=== PATIENT | female | born 1985 | race Caucasian/White ===

== ENCOUNTER 2018-07-31 23:12 | Emergency (ER) | payer MEDICAID, SELFPAY ==
[2018-07-31 23:21] VITALS: BP 137/63; PULSE 104; RESP 28; TEMP 36.7; O2SAT 100
--- NOTE | 2018-08-01 01:11 | ED.GENADUL_ITS ---
Discharge Plan Disposition Patient Disposition: HOME Condition: Stable Discharge Details Chief Complaint: FacialProb Clinical Impression: Left facial pain, Odontalgia, Dysuria ED Provider: Magalys Clark Home Meds and New Rx's Prescriptions: New clindamycin HCl 150 mg capsule 450 mg PO TID 7 Days Qty: 63 RF: 0 Continued methadone 10 mg/mL Solution 120 mg DAILY RF: 0 Discharge Instructions Instructions: Dysuria (ED), Toothache (ED) Additional Instructions: Alternate tylenol and motrin as needed and directed for pain. Take antibiotics until finished. Follow up with your primary doctor and dentist in 1 week for re-evaluation. Return immediately to the emergency department with any worsening or new concerning symptoms. Discharge Data Discharge Physician: Magalys Clark Medical Decision Making 32-year-old female who presents with 2 complaints. Patient is complaining of dental pain past week, with radiation to left ear and jaw today, worse after blowing nose. Also complaining of dysuria and urinary urgency for the past week. Vitals now within normal limits. Was tachycardic on arrival due to pain, but pain now subsided after taking ibuprofen at home. Patient takes methadone for her chronic pain related to her multiple myeloma. No dental abscess, submandibular swelling, trismus, drooling, lymphadenopathy. Tenderness to palpation of left upper frontal tooth and poor dentition throughout. Abdomen soft nontender. No CVA tenderness. Differential diagnosis includes dental infection, sinus infection, otitis. Will give antibiotics for the facial complaint. Will send for urinalysis. UA negative. D/w pt the possibility of interstitial cystitis. Will give a dose of clindamycin and prescription for home for possible dental for sinus infection. Will place patient on care management list to arrange for a follow- up appoint with her primary care doctor. Patient instructed to follow-up with her dentist for reevaluation and with [facility] for evaluation of her multiple myeloma. Medical Records Medical records reviewed: Yes I reviewed the patient's medical records. Lab Data Lab results reviewed: Yes I reviewed the patient's lab results. Laboratory Tests Range/Units 08/01/18 01:15 Urine Color (Yellow) Yellow Urine Clarity Clear Urine pH (5-8) 5.5 Ur Specific [place] (1.005-1.025) >= 1.030 H Urine Protein (Negative) mg/dL Trace H Urine Ketones (Negative) mg/dL Negative Urine Blood (Negative) Negative Urine Nitrite (Negative) Negative Urine Bilirubin (Negative) Negative Urine Urobilinogen (Up TO 0.2) EU/dL 0.2 Ur Leukocyte Esterase (Negative) Negative Urine RBC (0-2) 0-2 Urine WBC (0-5) HPF 0-2 Ur Epithelial Cells (Negative) HPF Moderate Urine Crystals (Negative) HPF Many calcium oxalate Urine Bacteria (Negative) HPF Few Urine Casts (Negative) LPF Negative Urine Mucus (Negative) Negative Ur Culture Indicated? No Urine Glucose (Negative) mg/dL Negative HPI General Mode of arrival: ambulatory . Date/Time Provider Initiated Documentation: 07/31/18 23:14 . Limitations to Documentation: no limitations . Information obtained by: patient . HPI Narrative: Patient is a 32-year-old female who presents to the ED with a complaint of left facial pain for the past week. Patient states the pain is radiating from her left upper tooth up into her ear and down to her jaw. Patient states she is concerned about a dental abscess. Patient does also admit to recent broken tooth. Patient states the pain became severe tonight when she blew her nose. Patient states she took several doses of Aleve and ibuprofen which did not help initially but now she admits to some relief. She also admits to dysuria and urinary urgency for the past week. She denies hematuria, fever, abdominal pain or back pain. She states she vomited once here in the ED but she thinks that was due to taking Aleve prior to arrival. She denies any nausea at present. Related Data Home Medications Medication Instructions Recorded Confirmed methadone 120 mg DAILY 07/31/18 07/31/18 clindamycin HCl 450 mg PO TID 7 Days #63 cap 08/01/18 Previous Rx's Medication Instructions Recorded clindamycin HCl 450 mg PO TID 7 Days #63 cap 08/01/18 Allergies Allergy/AdvReac Type Severity Reaction Status Date / Time Penicillins AdvReac Severe Anaphylaxsi Unverified 07/31/18 23:29 s General Stated Complaint: FacialProb OSCAR: 3 Review of Systems Review of Systems All systems reviewed & are unremarkable except as noted in HPI and below Constitutional Reports as per HPI, Denies chills and Denies fever(s) Eyes Denies blurry vision ENT Reports dental pain, Denies dizziness, Reports otalgia, Reports facial pain, Denies sore throat and Denies throat swelling Cardiovascular Denies chest pain and Denies dyspnea Respiratory Denies dyspnea Gastrointestinal Denies abdominal pain, Denies diarrhea and Denies vomiting Genitourinary Denies hematuria, Denies urinary frequency, Denies dysuria, Reports urinary hesitancy and Reports urinary urgency Musculoskeletal Denies back pain and Denies numbness Integumentary/Breasts Denies lesions and Denies rash Neurologic Denies dizziness and Denies numbness Allergic/Immunologic Denies throat swelling [facility] Medical History ADHD (Acute) Multiple myeloma (Acute) Social History Smoking/Tobacco Use Status: Current every day alcohol intake: never substance use type: does not use Exam Const General: cooperative, healthy appearing and no acute distress HENMT Head: normal to inspection Ears: hearing grossly normal bilaterally General nose exam: external nose normal Face and sinus: normal facial exam and sinuses nontender Mouth: oral mucosae normal Teeth and gingiva: poor dentition and other (Missing teeth. TTP #10 with superficial ulcer in gum just above.No abscess ) Throat: posterior oropharynx normal, uvula midline and no peritonsillar masses Eyes General: appearance normal, both eyes and all related structures Pupils: PERRL EOM: EOM intact bilaterally Neck Neck: normal visual inspection and No submandibular swelling Lymphatic: no lymphadenopathy noted Chest Chest: normal inspection of the chest and no tenderness Resp Effort & Inspection: normal respiratory effort and able to speak in complete sentences Auscultation: clear to auscultation bilaterally Cardio Rate: regular rate Rhythm: regular rhythm GI Inspection: normal to inspection Palpation: soft, not firm, not rigid and nontender Auscultation: normal bowel sounds Back/Spine/Pelvis Back: no CVA tenderness Skin General skin exam: no rashes or lesions noted Neuro General: alert, awake and oriented x3 Cognition: normal cognition Speech: speech normal Motor: muscle tone normal throughout Sensory Exam: no sensory deficits noted Extrem General: normal to inspection, full ROM, normal capillary refill, no calf tenderness bilaterally and no edema Psych Appearance: grossly normal Mental Status: mental status grossly normal Speech and Movement: speech and movement normal Affect: normal affect Course Vital Signs Temperature 98.1 F 07/31/18 23:21 Pulse 104 H 07/31/18 23:21 Respiratory Rate 28 H 07/31/18 23:21 Blood Pressure 137/63 07/31/18 23:21 Pulse Oximetry 100 07/31/18 23:21 Temperature 98.1 F 07/31/18 23:21 Temperature Source Temporal Artery Scan 07/31/18 23:21 Pulse 104 H 07/31/18 23:21 Respiratory Rate 28 H 07/31/18 23:21 Respiratory Effort 07/31/18 23:21 Blood Pressure 137/63 07/31/18 23:21 Pulse Oximetry 100 07/31/18 23:21 Oxygen Delivery Method Room Air 07/31/18 23:21 Oxygen Flow Rate 0 07/31/18 23:21 Pain Level 10 07/31/18 23:28
[2018-08-01 01:34] LABS: Bilirubin Negative (Negative); Blood Negative (Negative); Clarity Clear; Glucose Negative (Negative); Ketones Negative (Negative); Leukocyte Esterase Negative (Negative); Nitrite Negative (Negative); Specific Gravity >= 1.030 (1.005-1.025); Urobilinogen 0.2 EU/dL (Up TO 0.2); pH 5.5 (5-8)
[2018-08-01 01:43] LABS: Bacteria Few HPF (Negative); C & S Indicated? No; Casts Negative LPF (Negative); Crystals Many Calcium Oxalate HPF (Negative); Epithelial Cells Moderate HPF (Negative); Mucus Negative (Negative); RBC 0-2 (0-2); WBC 0-2 HPF (0-5)
[2018-08-01] MEDS: Clindamycin 150 MG CAP 450 MG PO (01:50)
[2018-08-01 02:09] VITALS: BP 128/80; PULSE 97; RESP 18; O2SAT 100
--- NOTE | 2018-08-01 09:35 | PDOC.ERCMPRO ---
Care Management Progress Note 07/31-Dr. Clark requested assistance with a PCP(Patient does not have one, [place] extension [place]) f/u in one week for left facial pain. Referral faxed to [facility] this am.
--- NOTE | 2018-08-01 09:36 | CMPROGNOTE_ITS ---
Care Management Progress Note 07/31-Dr. Clark requested assistance with a PCP(Patient does not have one, [place] [employer]) f/u in one week for left facial pain. Referral faxed to [facility] this am.
== END 2018-08-01 02:00 | disposition home or self-care (01) ==
LOC: ER 08-01 02:18
PROVIDERS: Emergency Provider Physician Assistant
DX: R51 Headache (principal); K08.89 Other specified disorders of teeth and supporting structures; R30.0 Dysuria; F17.210 Nicotine dependence, cigarettes, uncomplicated
CPT/HCPCS: 99283; 81003; 81015

== ENCOUNTER 2018-12-21 12:24 | Emergency (ER) | payer MEDICAID, SELFPAY ==
[2018-12-21 12:33] VITALS: BP 156/101; PULSE 121; RESP 20; TEMP 37; O2SAT 97
[2018-12-21 13:14] LABS: Bilirubin Negative (Negative); Blood Negative (Negative); Clarity Clear; Glucose Negative (Negative); Ketones Negative (Negative); Leukocyte Esterase Negative (Negative); Nitrite Negative (Negative); Specific Gravity >= 1.030 (1.005-1.025); Urobilinogen 0.2 EU/dL (Up TO 0.2); pH 5.5 (5-8)
--- NOTE | 2018-12-21 13:27 | ED.GENADUL_ITS ---
Discharge Plan Disposition Patient Disposition: HOME Condition: Stable Discharge Details Chief Complaint: Nk/Back Pain Clinical Impression: Low back pain with right-sided sciatica Primary Care Provider: Jane,Local ED Provider: Jordan Abbasi Home Meds and New Rx's Prescriptions: New cyclobenzaprine 10 mg tablet 10 mg PO TID PRN (Reason: muscle spasm) Qty: 10 RF: 0 lidocaine HCl 3 % cream 1 applic TP BID PRN (Reason: pain) Qty: 28.3 RF: 0 Continued methadone 10 mg/mL Solution 135 mg DAILY RF: 0 methylphenidate HCl [Ritalin] 5 mg Tablet 5 mg PO DAILY RF: 0 dextroamphetamine-amphetamine [Adderall] 20 mg Tablet 20 mg PO BID RF: 0 Discharge Instructions Instructions: Sciatica (ED), Low Back Strain (ED), Lumbar Radiculopathy (ED), Lower Back Exercises (ED) Additional Instructions: Return to the emergency department if you develop a fever with your back pain, change in bowel or bladder function, saddle anesthesia, or any further concerns. Otherwise you should establish a primary care provider and follow-up with them in the next 1 to 2 weeks. Referrals: Primary Care Provider [Outside] - 2 weeks (if not improving) Discharge Data Discharge Date/Time-TO BE ENTERED AT DEPARTURE: 12/21/18 13:41 Medical Decision Making Patient presenting the emergency department for chief complaint of right-sided flank pain that started 9 days ago and then over the past 5 days started noting seeing some radiating discomfort down the posterior aspect of her leg into her foot. She states over the last couple days it is been worsening and she went online and looked things up on the Internet and now has significant anxiety about her symptoms. She does state right-sided sciatica in the past with some discomfort to her leg but never this severe. Physical exam shows stable but very anxious patient who is ambulatory with some slight gait abnormality and limping to the right. Patient has positive straight leg raise on the right and tenderness to the right lower lumbar region there is both soft tissue and somewhat spinal without any step-off or deformity noted. Otherwise deep tendon reflexes of bilateral extremity's are equal with no abnormality, sensation is intact, and movement is also intact except for eliciting pain and discomfort. Given the patient states that symptoms seemed more flank in nature urinalysis was performed. Patient is not and shows mild concentration of urine but otherwise no signs of infection or other worrisome findings are noted. Patient given IM ketorolac, lidocaine patch in the emergency department for concern of low back pain with sciatica/radiculopathy. No signs of cauda equina, central cord syndrome, epidural abscess. Return precautions were discussed. Patient states that she wants to follow-up with [facility] and states that she will arrange establishment of primary care. Patient was informed that she should go there sooner than possible to fill out any needed paperwork. After discussion of diagnosis and plan of care patient has no further needs, questions, or concerns and states clear understanding to return to the emergency department for any worsening symptoms. HPI General Mode of arrival: ambulatory . Date/Time Provider Initiated Documentation: 12/21/18 12:27 . Limitations to Documentation: no limitations . Information obtained by: patient and RN notes reviewed . History of Present Illness 32 year old F presents to the emergency department with the chief complaint of back pain, described as severe, with intensity rated at 6. Quality is described as sharp, and is localized to the right and lower extremity. Patient started experiencing this day(s) (9) No relieving factors improve symptom(s), Movement worsens symptoms . Patient notes no other symptoms.. Patient did receive the following treatments prior to arrival, none Related Data Home Medications Medication Instructions Recorded Confirmed methadone 135 mg DAILY 07/31/18 12/21/18 cyclobenzaprine 10 mg PO TID PRN #10 tab 12/21/18 dextroamphetamine-amphetamine 20 mg PO BID 12/21/18 12/21/18 [Adderall] lidocaine HCl 1 applic TP BID PRN #28.3 gm 12/21/18 methylphenidate HCl [Ritalin] 5 mg PO DAILY 12/21/18 12/21/18 Previous Rx's Medication Instructions Recorded cyclobenzaprine 10 mg PO TID PRN #10 tab 12/21/18 lidocaine HCl 1 applic TP BID PRN #28.3 gm 12/21/18 Allergies Allergy/AdvReac Type Severity Reaction Status Date / Time Penicillins AdvReac Severe Anaphylaxsi Unverified 07/31/18 23:29 s General Stated Complaint: Nk/Back Pain OSCAR: 4 Review of Systems Constitutional Denies chills and Denies fever(s) Cardiovascular Denies chest pain and Denies dyspnea on exertion Respiratory Denies cough and Denies dyspnea on exertion Gastrointestinal Denies abdominal pain, Denies change in bowel habits, Denies diarrhea, Denies nausea and Denies vomiting Genitourinary Denies urinary incontinence Musculoskeletal Reports as per HPI, Reports back pain, Reports numbness and Reports tingling Neurologic Reports numbness and Reports tingling [facility] Medical History ADHD (Acute) Multiple myeloma (Acute) Social History Smoking/Tobacco Use Status: Current every day Alcohol Intake: never Drug use: Never Substance use type: does not use Do you feel safe in your relationship?: Yes Exam Const General: cooperative and no acute distress Orientation: alert, awake and oriented x3 Neck Neck: normal visual inspection, full ROM and no meningeal signs Resp Effort & Inspection: normal respiratory effort Auscultation: clear to auscultation bilaterally Cardio Rate: regular rate Rhythm: regular rhythm Heart Sounds: S1 normal and S2 normal GI Palpation: no hepatosplenomegaly, no aortic enlargement, no masses, no pulsatile masses and nontender Back/Spine/Pelvis Thoracic/Lumbar Spine: pain with thoraco-lumbar ROM and thoraco-lumbar ROM limited Pelvis: no pain with anterior-posterior compression, no pain with lateral compression, buttock tenderness on the right and sciatic notch tenderness on the right Neuro General: alert, awake and oriented x3 DTR's: Rt Patellar: 2+, Lt Patellar: 2+, Rt Ankle: 2+ and Lt Ankle: 2+ Extrem Right lower extremity: hip/thigh Details: normal to inspection, knee Details: normal to inspection and lower leg Details: normal to inspection Course Vital Signs Temperature 37.0 C 12/21/18 12:33 Pulse 121 H 12/21/18 12:33 Respiratory Rate 20 12/21/18 12:33 Blood Pressure 156/101 H 12/21/18 12:33 Pulse Oximetry 97 12/21/18 12:33 Temperature 37.0 C 12/21/18 12:33 Temperature Source Tympanic 12/21/18 12:33 Pulse 121 H 12/21/18 12:33 Respiratory Rate 20 12/21/18 12:33 Respiratory Effort Non-Labored 12/21/18 12:38 Blood Pressure 156/101 H 12/21/18 12:33 Blood Pressure Position Sitting 12/21/18 12:33 Pulse Oximetry 97 12/21/18 12:33 Oxygen Delivery Method Room Air 12/21/18 12:33 Oxygen Flow Rate 0 12/21/18 12:33 Pain Level 6 12/21/18 12:33 Lab/Test Results Lab/Test Results: Laboratory Tests Range/Units 12/21/18 13:01 Urine Color (Yellow) Yellow Urine Clarity Clear Urine pH (5-8) 5.5 Ur Specific [place] (1.005-1.025) >= 1.030 H Urine Protein (Negative) mg/dL Negative Urine Ketones (Negative) mg/dL Negative Urine Blood (Negative) Negative Urine Nitrite (Negative) Negative Urine Bilirubin (Negative) Negative Urine Urobilinogen (Up TO 0.2) EU/dL 0.2 Ur Leukocyte Esterase (Negative) Negative Urine Glucose (Negative) mg/dL Negative POC- Test(urine) Negative
[2018-12-21] MEDS: Lidocaine 5% Patch 1 PATCH TP (13:30)
[2018-12-21] MEDS: Ketorolac 60 MG/2 ML VIAL IM (13:30)
== END 2018-12-21 13:41 | disposition home or self-care (01) ==
PROVIDERS: Emergency Provider Nurse Practitioner Family
DX: M54.41 Lumbago with sciatica, right side (principal)
CPT/HCPCS: 81025; 96374; 99284; 81003; J1885

== ENCOUNTER 2019-06-19 10:45 | Emergency (ER) | payer MEDICAID, SELFPAY ==
[2019-06-19 10:48] VITALS: BP 173/118; PULSE 108; RESP 18; TEMP 36.3; O2SAT 99
--- NOTE | 2019-06-19 10:55 | W.ED.GENAD ---
Discharge Plan Disposition Patient Disposition: HOME Condition: Good Discharge Details Chief Complaint: RespSymp Clinical Impression: Otitis media, URI (upper respiratory infection) Primary Care Provider: Jane,Local ED Provider: Caryn Guadarrama Home Meds and New Rx's Prescriptions: New doxycycline hyclate 100 mg capsule 100 mg PO BID Qty: 20 RF: 0 benzonatate [Tessalon Perles] 100 mg capsule 100 mg PO TID PRN (Reason: cough) Qty: 14 RF: 0 Continued methadone 10 mg/mL Solution 133 mg DAILY RF: 0 methylphenidate HCl [Ritalin] 5 mg Tablet 5 mg PO DAILY RF: 0 dextroamphetamine-amphetamine [Adderall] 20 mg Tablet 20 mg PO TID RF: 0 cyclobenzaprine 10 mg tablet 10 mg PO TID PRN (Reason: muscle spasm) Qty: 10 RF: 0 lidocaine HCl 3 % cream 1 applic TP BID PRN (Reason: pain) Qty: 28.3 RF: 0 ibuprofen 200 mg Tablet 600 - 800 mg PO PRN PRNRF: 0 Discharge Instructions Instructions: Otitis Media (ED), Upper Respiratory Infection (ED) Additional Instructions: You have an ear infection in the right ear. Please take the antibiotics as prescribed. Encourage water intake. You may use Tylenol and/or ibuprofen as needed for discomfort. Your lungs are clear on exam but the antibiotic will cover you if you are developing pneumonia as well. Tessalon perles prescribed to help with cough. Our health care sanitary technician will reach out to you regarding establishing primary care provider. If you develop fever/chills, increased pain, discharge from the ear, difficulty breathing or other new/worsening symptoms please seek care urgently once again. Medical Decision Making Patient is a 33-year-old female presenting to complain of URI. She reports she began having a cough 1 week ago. States that initially, it was nonproductive. Over recent days, she is developed right ear pain, increased feeling of malaise and productive cough. Denies any fevers. Denies any GI upset. No rash. Feels short of breath when she is having coughing fits but otherwise no dyspnea. No pleuritic chest pain. Patient status post tubal ligation. On exam, patient appears anxious and shaky. She reports that she missed her morning methadone dosing secondary to [facility] turning me away. We did call the clinic and they are willing to test the patient today after discharge. She appears nontoxic. She has findings of erythema, bulging and loss of landmarks of the right tympanic membrane consistent with acute otitis media. No mastoid tenderness, no lymphadenopathy. Posterior oropharynx is normal. Lungs are clear in all [place]icea. I am concerned that the patient may be developing pneumonia that is not clinically evident at this time. She does have anaphylactic reaction to penicillin, will use doxycycline for otitis media and presumed early pneumonia. She does not have a primary care, I have asked her health care sanitary technician help orchestrate follow-up in 1 week for reevaluation. I encouraged hydration. We will also prescribe Tessalon Perles to help with cough. Patient was initially hypertensive at 173/118 but this came down to 108/77 shortly after arrival. Initial reading is likely due to the patient moving and being very anxious. She reported the shakiness initially was from her missing her dosing as well as her ADHD. Patient was given return precautions. All her questions and concerns are addressed she is in agreement this plan. HPI General Mode of arrival: ambulatory. Date/Time Provider Initiated Documentation: 06/19/19 10:54. Limitations to Documentation: no limitations. Information obtained by: patient and RN notes reviewed. History of Present Illness 33 year old F presents to the emergency department with the chief complaint of URI, described as moderate, with intensity rated at 7. Quality is described as aching (left ear pain), Patient reports no radiation. Patient started experiencing this week(s) (1) and it has been constant. No relieving factors improve symptom(s), No exacerbating factors reported . Patient notes cough and shortness of breath (with cough); denies diaphoresis, fever/chills, headaches, loss of appetite, nausea/vomiting, rash and weakness. Patient did receive the following treatments prior to arrival, NSAID (ibuprofen) Related Data Home Medications Medication Instructions Recorded Confirmed methadone 133 mg DAILY 07/31/18 06/19/19 cyclobenzaprine 10 mg PO TID PRN #10 tab 12/21/18 06/19/19 dextroamphetamine-amphetamine 20 mg PO TID 12/21/18 06/19/19 [Adderall] lidocaine HCl 1 applic TP BID PRN #28.3 gm 12/21/18 06/19/19 methylphenidate HCl [Ritalin] 5 mg PO DAILY 12/21/18 06/19/19 benzonatate [Tessalon Perles] 100 mg PO TID PRN #14 cap 06/19/19 doxycycline hyclate 100 mg PO BID #20 cap 06/19/19 ibuprofen 600 - 800 mg PO PRN PRN 06/19/19 06/19/19 Previous Rx's Medication Instructions Recorded cyclobenzaprine 10 mg PO TID PRN #10 tab 12/21/18 lidocaine HCl 1 applic TP BID PRN #28.3 gm 12/21/18 benzonatate [Tessalon Perles] 100 mg PO TID PRN #14 cap 06/19/19 doxycycline hyclate 100 mg PO BID #20 cap 06/19/19 Allergies Allergy/AdvReac Type Severity Reaction Status Date / Time Penicillins AdvReac Severe Anaphylaxsi Unverified 06/19/19 10:51 s amoxicillin AdvReac Unverified 06/19/19 10:57 General Stated Complaint: RespSymp OSCAR: 3 Review of Systems Constitutional Constitutional: Reports as per HPI, Denies chills, Denies fever(s) and Denies headache(s) Eyes Eyes: Reports as per HPI, Denies eye discharge and Denies irritation ENT Ears, Nose, Mouth, and Throat: Reports as per HPI and Denies headache(s) Cardiovascular Cardiovascular: Reports as per HPI, Denies chest pain and Denies dyspnea Respiratory Respiratory: Reports as per HPI and Denies dyspnea Gastrointestinal Gastrointestinal: Reports as per HPI, Denies abdominal pain, Denies change in bowel habits, Denies nausea and Denies vomiting Integumentary/Breasts Skin/Breast: Reports as per HPI and Denies rash Neurologic Neurologic: Reports as per HPI and Denies headache(s) [facility] Medical History ADHD (Acute) Multiple myeloma (Acute) Social History Smoking/Tobacco Use Status: Current every day Tobacco Type: cigarettes Alcohol Intake: never Drug use: Never Substance use type: does not use Do you feel safe at home: Yes Do you feel safe in your relationship?: Yes Exam Const General: cooperative, healthy appearing, comfortable, no acute distress, well developed and well groomed Nutritional Appearance: average body habitus and well nourished Orientation: alert and awake [facility] Head: normal to inspection, normocephalic and atraumatic Ears: hearing grossly normal bilaterally, external ears normal, TM's abnormal bilaterally (right is bulging, erythematous, loss of landmarks), TM normal on the left, mastoids normal and no periauricular adenopathy General nose exam: external nose normal and nares normal Face and sinus: normal facial exam, sinuses nontender and face symmetric Mouth: oral mucosae normal, lip normal, tongue normal, oropharynx normal and moist mucous membranes Teeth and gingiva: dentition normal Throat: posterior oropharynx normal, tonsils normal and uvula midline Eyes General: appearance normal, both eyes and all related structures Neck Neck: normal visual inspection, full ROM, no lymphadenopathy and no meningeal signs Resp Effort & Inspection: normal respiratory effort, able to speak in complete sentences and no respiratory distress Auscultation: clear to auscultation bilaterally, no rales, no rhonchi and no wheezes Cardio Rate: regular rate Rhythm: regular rhythm Heart Sounds: S1 normal and S2 normal Skin General skin exam: no rashes or lesions noted Neuro General: alert and awake Cognition: normal cognition Speech: speech normal Gait: normal gait Psych Appearance: grossly normal and well kempt Mental Status: mental status grossly normal Speech and Movement: speech and movement normal Course Vital Signs Vital signs: Vital Signs Temperature 36.3 C L 06/19/19 10:48 Pulse 108 H 06/19/19 10:48 Respiratory Rate 18 06/19/19 10:48 Blood Pressure 173/118 H 06/19/19 10:48 Pulse Oximetry 99 06/19/19 10:48 Temperature 36.3 C L 06/19/19 10:48 Temperature Source Temporal Artery Scan 06/19/19 10:48 Pulse 108 H 06/19/19 10:48 Respiratory Rate 18 06/19/19 10:48 Respiratory Effort Non-Labored 06/19/19 10:50 Blood Pressure 173/118 H 06/19/19 10:48 Blood Pressure Position Sitting 06/19/19 10:48 Pulse Oximetry 99 06/19/19 10:48 Oxygen Delivery Method Room Air 06/19/19 10:48 Oxygen Flow Rate 0 06/19/19 10:48 Pain Level 8 06/19/19 10:48
[2019-06-19 11:12] VITALS: BP 108/77; PULSE 96; RESP 22; O2SAT 97
[2019-06-19] MEDS: Acetaminophen 500 MG TAB 1000 MG PO (11:15)
[2019-06-19] MEDS: Doxycycline Hyclate 100 MG CAP PO (11:15)
== END 2019-06-19 11:23 | disposition home or self-care (01) ==
PROVIDERS: Emergency Provider Physician Assistant
DX: J06.9 Acute upper respiratory infection, unspecified (principal); H66.91 Otitis media, unspecified, right ear
CPT/HCPCS: 99283

== ENCOUNTER 2020-03-19 05:00 | Outpatient (CLI) | payer MEDICAID, SELFPAY ==
--- NOTE | 2020-03-19 08:45 | RT.EKG_ITS ---
APPROVED REPORT Exam: Resting ECG Patient Location: O HR:92 bpm ECG Measurements Heart Rate 92 AXIS LA 131 P 65 QRSd 82 QRS 67 QT 384 T 7 QTc 476 Conclusion Sinus rhythm...normal P axis, V-rate 60- 99 Probable left atrial enlargement...P >50mS, <-0.10mV V1 Anteroseptal infarct, old...Q >40mS, V1-V2 Nonspecific ST-T changes
== END 2020-03-19 05:20 ==
PROVIDERS: Visit Provider Family Medicine
DX: Z79.899 Other long term (current) drug therapy (principal); Z13.6 Encounter for screening for cardiovascular disorders; R94.31 Abnormal electrocardiogram [ECG] [EKG]
CPT/HCPCS: 93005; 93010

== ENCOUNTER 2020-03-22 14:33 | Outpatient (REF) | payer MEDICAID, SELFPAY ==
[2020-03-22 15:00] LABS: Abs Immature Grans 0.01 10^3/uL (0.0-0.06); Absolute Basophil Count 0.03 10^3/uL (0.0-0.2); Absolute Lymphocyte Count 2.49 10^3/uL (1.2-3.4); Absolute Monocyte Count 0.34 10^3/uL (0.1-0.8); Absolute Neutrophil Count 2.36 10^3/uL (1.2-6.7); Basophils % 0.6; Eosinophils % 1.9; HCT 39.4 % (36.0-46.0); HGB 13.2 g/dL (11.2-15.7); Immature Grans % 0.2; Lymphocytes % 46.7; MCH 30.3 pg (27.0-33.0); MCHC 33.5 % (32.0-36.0); MCV 90.6 fL (80-95); MPV 10.7 fL (8.0-11.0); Monocytes % 6.4; Neutrophils % 44.2; Nucleated RBC 0 %; Platelet Count 251 10^3/uL (130-400); RBC 4.35 10^6/uL (3.93-5.22); RDW 12.3 % (11.7-14.6); RDW-SD 40.6 fL; WBC 5.33 10^3/uL (4.4-10.8)
[2020-03-22 15:17] LABS: ALT 49 U/L (14-59); AST 46 U/L (15-37); Albumin 3.7 g/dL (3.4-5.0); Alkaline Phosphatase 128 U/L (46-116); Anion Gap 8.9 mmol/L (3-11); BUN 19 mg/dL (7-18); Bilirubin, Total 0.2 mg/dL (0.2-1.0); CO2 27.1 mmol/L (21.0-32.0); CREATININE 1.07 mg/dL (0.55-1.02); Calcium 8.8 mg/dL (8.5-10.1); Chloride 101 mmol/L (98-107); Estimated GFR 58.36 (mL/min/1.73m2); Glucose 101 mg/dL (74-106); Potassium 4.4 mmol/L (3.5-5.1); Sodium 137 mmol/L (136-145); Total Protein 7.3 g/dL (6.4-8.2)
[2020-03-25 11:06] LABS: HIV-1/2 Ag & Ab Screen Negative (Negative)
[2020-03-25 11:29] LABS: Hepatitis C Ab w Rflx HCV PCR Reactive (Negative)
[2020-03-25 11:33] LABS: Hepatitis B Surface Ag Negative (Negative)
[2020-03-25 12:03] LABS: Hep A Total Ab w Rflx IgM Negative (Negative); Hep B Core Antibody Negative (Negative)
[2020-03-25 12:10] LABS: Syphilis Serology (RPR) Negative (Negative)
[2020-03-27 13:35] LABS: HCV RNA Qualitative Undetected (Undetected)
== END 2020-03-22 14:53 ==
LOC: LBN 14:33
PROVIDERS: Visit Provider Nurse Practitioner Family
DX: F11.20 Opioid dependence, uncomplicated (principal); Z11.3 Encounter for screening for infections with a predominantly sexual mode of transmission; Z11.59 Encounter for screening for other viral diseases; Z11.4 Encounter for screening for human immunodeficiency virus [HIV]
CPT/HCPCS: 80053; 86704; 86709; 86803; 87340; 87389; 87522; 85025; 86592

== ENCOUNTER 2020-08-24 16:03 | Emergency (ER) | payer MEDICAID, SELFPAY ==
[2020-08-24 16:11] VITALS: BP 160/96; PULSE 111; RESP 24; TEMP 36.1; O2SAT 99
--- NOTE | 2020-08-24 16:25 | ED.GENADUL_ITS ---
Discharge Plan Disposition Patient Disposition: HOME Condition: Stable Discharge Details Clinical Impression: Odontalgia, Vaginal mass Primary Care Provider: None,None ED Provider: David Tillman Home Meds and New Rx's Prescriptions: New clindamycin HCl 300 mg capsule 300 mg PO Q6H 7 Days Qty: 28 RF: 0 No Action methadone 10 mg/mL Solution 133 mg DAILY RF: 0 methylphenidate HCl [Ritalin] 5 mg Tablet 5 mg PO DAILY RF: 0 dextroamphetamine-amphetamine [Adderall] 20 mg Tablet 20 mg PO TID RF: 0 lidocaine HCl 3 % cream 1 applic TP BID PRN (Reason: pain) Qty: 28.3 RF: 0 ibuprofen 200 mg Tablet 600 - 800 mg PO PRN PRNRF: 0 Discharge Instructions Instructions: Toothache (ED) Additional Instructions: See enclosed paperwork. Please call the radiology scheduling office to make an appointment time for outpatient ultrasound. We will have you follow-up in women's health. Please take clindamycin as prescribed. I recommend you take an [id number] probiotic once daily while on this antibiotic. Return to the ER for any acute concerns. Continue your regular medications. Resume normal routine and activities. Medical Decision Making 34-year-old female presents from home with 2 complaints. First is that she has had numerous dental caries, partially broken teeth and now with some oral pain without significant swelling, concerned she may have a right-sided tooth infection. Secondly she has noticed a protuberant mass in her vaginal introitus. She is not had vaginal discharge or bleeding. No trauma to the area and has otherwise recently been well. Her vital signs show to have a slightly elevated heart rate at triage. Her oral examination is concerning for developing dental infection. Secondly she has a soft tissue mass at the vaginal introitus, may be a cystocele. She wishes to be discharged home today, therefore, I will order an outpatient vaginal ultrasound for the patient have her follow-up in women's health. She will be placed on clindamycin for her dental infection. HPI General Mode of arrival: ambulatory . Date/Time Provider Initiated Documentation: 08/24/20 16:04 . Limitations to Documentation: no limitations . Information obtained by: patient . History of Present Illness 34 year old F presents to the emergency department with the chief complaint of Tooth infection and vaginal mass, described as moderate, Quality is described as dull, and is localized to the mouth. Patient reports no radiation. Patient started experiencing this day(s) and it has been constant. No relieving factors improve symptom(s), No exacerbating factors reported . Patient notes denies loss of appetite. Patient did receive the following treatments prior to arrival, none Related Data Home Medications Medication Instructions Recorded Confirmed methadone 133 mg DAILY 07/31/18 06/19/19 dextroamphetamine-amphetamine 20 mg PO TID 12/21/18 06/19/19 [Adderall] lidocaine HCl 1 applic TP BID PRN #28.3 gm 12/21/18 06/19/19 methylphenidate HCl [Ritalin] 5 mg PO DAILY 12/21/18 06/19/19 ibuprofen 600 - 800 mg PO PRN PRN 06/19/19 06/19/19 clindamycin HCl 300 mg PO Q6H 7 Days #28 cap 08/24/20 Previous Rx's Medication Instructions Recorded lidocaine HCl 1 applic TP BID PRN #28.3 gm 12/21/18 clindamycin HCl 300 mg PO Q6H 7 Days #28 cap 08/24/20 Allergies Allergy/AdvReac Type Severity Reaction Status Date / Time Penicillins AdvReac Severe Anaphylaxsi Unverified 08/24/20 16:15 s amoxicillin AdvReac Unverified 08/24/20 16:15 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 Pleasant, well groomed, interactive. HEAD: Normocephalic, atraumatic ENT: Mucous membranes moist, oropharynx with numerous missing and partially broken teeth, tender right lower premolar, tympanic membrane clear bilaterally, External ear exam unremarkable EYES: PERRL, EOMI NECK: Full ROM, no FORREST, no menigismus CHEST/RESP: Nontender, clear to auscultation bilateral, no wheeze/rhonchi/rales CARDIOVASCULAR: RRR, no murmur, rub juan manuel. 2+ Rad pulse bilateral ABDOMEN: Soft, nontender, no mass. +Bowel sounds Vaginal: There is a protuberant soft tissue mass at the vaginal introitus. It is mildly tender. No discharge or bleeding. EXT: Full ROM, no edema, no rash Neuro: Grossly normal neurologic exam, conversant, interactive. Psych: Speech fluent, thoughts congruent, affect normal Course Vital Signs Vital signs: Vital Signs Temperature 36.1 C L 08/24/20 16:11 Pulse 111 H 08/24/20 16:11 Respiratory Rate 24 08/24/20 16:11 Blood Pressure 160/96 H 08/24/20 16:11 Pulse Oximetry 99 08/24/20 16:11 Temperature 36.1 C L 08/24/20 16:11 Temperature Source Temporal Artery Scan 08/24/20 16:11 Pulse 111 H 08/24/20 16:11 Respiratory Rate 24 08/24/20 16:11 Blood Pressure 160/96 H 08/24/20 16:11 Blood Pressure Position Supine 08/24/20 16:11 Pulse Oximetry 99 08/24/20 16:11 Oxygen Delivery Method Room Air 08/24/20 16:11 Oxygen Flow Rate 0 08/24/20 16:11 Pain Level 0 08/24/20 16:11
--- NOTE | 2020-08-24 16:35 | NUR.NOTE ---
Nursing Note: Outpatient order for US faxed to DI for WedAug 26 or Aug 27 of next week. Juanita Cope [facility] Juanita Cope Referral given to Care Management to establish care with a PCP. Routine f/u. Juanita Cope
--- NOTE | 2020-08-26 15:17 | CMPROGNOTE_ITS ---
- If Service Date Differs Date of service: 08/26/20 Time of Service: 15:17 Care Management Progress Note America is seen in the ED on 08/24/2020 for odontalgia and a vaginal mass. At the request of ED provider, JENY coordinates a referral to MARGO Smith, SERVICES PROGRAM MANAGER-BC, of [facility], on-call provider, to assist America in obtaining a follow up appointment and in establishing care with a PCP. She has Medicaid for insurance. A referral has also been made by the ED to [facility].
--- NOTE | 2020-09-06 09:14 | NUR.NOTE ---
Nursing Note: Patient scheduled for a pelvic US and was a no show per DI. Juanita Cope
== END 2020-08-24 16:40 | disposition home or self-care (01) ==
PROVIDERS: Emergency Provider Emergency Medicine
DX: R68.84 Jaw pain (principal); K04.7 Periapical abscess without sinus; N89.8 Other specified noninflammatory disorders of vagina
CPT/HCPCS: 99283

== ENCOUNTER 2020-11-29 06:23 | Emergency (ER) | payer MEDICAID, SELFPAY ==
[2020-11-29 06:27] VITALS: BP 159/86; PULSE 88; RESP 18; TEMP 36.6; O2SAT 98
--- NOTE | 2020-11-29 06:36 | ED.GENADUL_ITS ---
Discharge Plan Disposition Patient Disposition: HOME Condition: Good Discharge Details Clinical Impression: Dental infection, Eczema of scalp Primary Care Provider: None,None ED Provider: Lars Wagoner Meds and New Rx's Prescriptions: New clindamycin HCl 300 mg capsule 300 mg PO TID Qty: 21 RF: 0 hydrocortisone 1 % cream 1 applic topical BID-QID PRN (Reason: itching/rash) Qty: 28.35 RF: 0 Continued methadone 10 mg/mL Solution 133 mg DAILY RF: 0 methylphenidate HCl [Ritalin] 5 mg Tablet 5 mg PO DAILY RF: 0 dextroamphetamine-amphetamine [Adderall] 20 mg Tablet 20 mg PO TID RF: 0 ibuprofen 200 mg Tablet 600 - 800 mg PO PRN PRNRF: 0 Discharge Instructions Additional Instructions: Alternate acetaminophen with ibuprofen to help with your dental pain. Antibiotic as prescribed. Contact dentist to see if can get earlier appointment. Hydrocortisone cream to scalp area to help with itching and rash. Follow-up with primary care if no improvement over the course of 1 to 2 weeks. Return to ED if difficulty breathing, inability to swallow, increasing facial swelling or redness, fever, other concern Medical Decision Making Patient with severe dental decay and multiple fractured teeth. Increasing dental pain now associated with facial pain and likely recurrent dental infection. Has allergies to penicillins and requires clindamycin for dental infection. She reports being on a cancellation list with the dentist but otherwise has appointment in a month. Posterior scalp and neck region looks like eczema but there is significant excoriated areas from her constant itching. A couple spots in the scalp itself do look like insect bites typically seen during the spring and season. Will treat rash with hydrocortisone cream to see if improvement with the pruritus. Patient needs primary care for follow up. HPI General Mode of arrival: ambulatory . Date/Time Provider Initiated Documentation: 11/29/20 06:36 . Limitations to Documentation: no limitations . Information obtained by: patient and RN notes reviewed . HPI Narrative: Patient presents to ED with complaint of rash and itching to the back of her scalp area as well as worsening dental pain over the last couple of days. Patient reports that she has rash with pruritus to the posterior scalp region about the area of the neck. She has been scratching and scratching. She has not had this problem before. She denies of bite because she does not go outside that much. She denies rash or pruritus anywhere else. She also reports that patient had tooth broke off a few days ago. She does have a dental appointment but not for a month. She has had previous dental problems and infections. Pain has been getting much worse. No fever. She does have facial and ear pain coming from the dental area. She denies any facial swelling or redness. No difficulty breathing. Able to swallow Related Data Home Medications Medication Instructions Recorded Confirmed methadone 133 mg DAILY 07/31/18 11/29/20 dextroamphetamine-amphetamine 20 mg PO TID 12/21/18 11/29/20 [Adderall] methylphenidate HCl [Ritalin] 5 mg PO DAILY 12/21/18 11/29/20 ibuprofen 600 - 800 mg PO PRN PRN 06/19/19 11/29/20 clindamycin HCl 300 mg PO TID #21 cap 11/29/20 hydrocortisone 1 applic TOPICAL BID-QID PRN 11/29/20 #28.35 g Previous Rx's Medication Instructions Recorded clindamycin HCl 300 mg PO TID #21 cap 11/29/20 hydrocortisone 1 applic TOPICAL BID-QID PRN 11/29/20 #28.35 g Allergies Allergy/AdvReac Type Severity Reaction Status Date / Time Penicillins AdvReac Severe Anaphylaxsi Unverified 11/29/20 06:30 s amoxicillin AdvReac Unverified 11/29/20 06:30 General Stated Complaint: DentalOral OSCAR: 4 Review of Systems Narrative: As documented in HPI otherwise negative as below. Const: no fever, chills, weakness Resp: no cough, SOB, pleuritic pain CV: no CP, diaphoresis, edema, syncope GI: no abdominal pain, nausea, vomiting, diarrhea Neuro: no numbness, focal weakness, confusion [facility] Medical History (Updated 11/29/20 @ 06:56 by Lars Wagoner MD) ADHD Multiple myeloma Social History Smoking/Tobacco Use Status: Current every day Tobacco Type: cigarettes Smoking risk assessment performed?: Yes Alcohol Intake: never Drug use: Never Substance use type: does not use Do you feel safe at home: Yes Do you feel safe in your relationship?: Yes Exam Narrative Exam Narrative: Const: WDWN female in NAD. HEENT: NC/AT. Normal facial exam. Very poor dentition with multiple fractured teeth. Percussion tenderness involving left lower canine. No obvious gingival abscess Eyes: Normal conjunctiva and sclera. Neck: Supple. Trachea midline. Lungs: Normal respiratory effort. Neuro: A+O x 3. Normal speech, mentation, gait. Cranial nerves II - XII grossly intact. No gross motor or sensory deficit. Skin: Warm and dry. Eczematous type rash posterior scalp along the neckline. Multiple areas of excoriation. No sign of overlying cellulitis Course Vital Signs Vital signs: Vital Signs Temperature 97.9 F 11/29/20 06:27 Pulse 88 11/29/20 06:27 Respiratory Rate 18 11/29/20 06:27 Blood Pressure 159/86 H 11/29/20 06:27 Pulse Oximetry 98 11/29/20 06:27 Temperature 97.9 F 11/29/20 06:27 Temperature Source Temporal Artery Scan 11/29/20 06:27 Pulse 88 11/29/20 06:27 Respiratory Rate 18 11/29/20 06:27 Blood Pressure 159/86 H 11/29/20 06:27 Blood Pressure Position Sitting 11/29/20 06:27 Pulse Oximetry 98 11/29/20 06:27
== END 2020-11-29 07:08 | disposition home or self-care (01) ==
LOC: ER 07:41
PROVIDERS: Emergency Provider Emergency Medicine
DX: K04.7 Periapical abscess without sinus (principal); L30.9 Dermatitis, unspecified
CPT/HCPCS: 99283

== ENCOUNTER 2021-11-02 20:58 | Emergency (ER) | payer MEDICAID, SELFPAY ==
[2021-11-02 21:08] VITALS: BP 155/95; PULSE 110; RESP 18; TEMP 36.7; O2SAT 100
[2021-11-02 21:39] VITALS: RESP 16
[2021-11-02] MEDS: Clindamycin 300 MG CAP 450 MG PO (21:50)
[2021-11-02 21:53] VITALS: BP 155/95; PULSE 110; RESP 16; TEMP 36.7; O2SAT 100
--- NOTE | 2021-11-02 23:26 | W.ED.GENAD ---
Discharge Plan Disposition Patient Disposition: HOME Condition: Stable Discharge Details Clinical Impression: Pain, dental, Lip swelling Primary Care Provider: None,None ED Provider: Didi Watts Home Meds and New Rx's Prescriptions: New clindamycin HCl 300 mg capsule 450 mg PO Q8H Qty: 90 0RF Continued methadone 10 mg/mL Solution 127 mg DAILY 0RF methylphenidate HCl [Ritalin] 5 mg Tablet 5 mg PO DAILY 0RF dextroamphetamine-amphetamine [Adderall] 20 mg Tablet 20 mg PO TID 0RF ibuprofen 200 mg Tablet 600 - 800 mg PO PRN PRN0RF hydrocortisone 1 % cream 1 applic topical BID-QID PRN (Reason: itching/rash) Qty: 28.35 0RF Discontinued clindamycin HCl 300 mg capsule 300 mg PO TID Qty: 21 0RF Discharge Instructions Additional Instructions: Take antibiotic as prescribed You have declined blood work or imaging, please follow-up with your primary care physician, you have not been fully evaluated Return earlier should you have new or worsening complaints Discharge Data Discharge Date/Time-TO BE ENTERED AT DEPARTURE: 11/02/21 21:53 Medical Decision Making I recommended labs and CT imaging, patient declines She is alert, oriented, of decisional capacity as her partner is in the room for the entirety of my recommendations and assessment Did recommend patient antibiotics to treat her for suspected dental infection vs facial abscess, did discuss that ct would be helpful in differentiating this diagnosis She has no evidence of Ludwigs angina She is aware that she is leaving prior to complete document any cancer medical recommendation care managment for follow-up to [facility] pcp recommendation to return at her earliest availability Medical Records Medical records reviewed: Yes I reviewed the patient's medical records. Lab Data Lab results reviewed: Yes I reviewed the patient's lab results. ECG Data Prior ECG tracings: available for review HPI General Date/Time Provider Initiated Documentation: 11/02/21 21:36. HPI Narrative: 35-year-old female with reported history of multiple myeloma presents with swelling to her right lip and dental pain. She also states she has had a sore throat. She denies any fever or chills. She states she has not had any medical management of her multiple myeloma does not have a primary care physician. She denies any chest pain or shortness of breath. She denies any dizziness or weakness. She denies any nausea or vomiting. She has not been on antibiotics recently. She denies any complaints time. She denies any chance of . She denies any difficulty swallowing. Related Data Home Medications Medication Instructions Recorded Confirmed methadone 10 mg/mL injection 127 mg DAILY 07/31/18 11/02/21 solution dextroamphetamine-amphetamine 20 20 mg PO TID 12/21/18 11/02/21 mg tablet (Adderall) methylphenidate HCl 5 mg tablet 5 mg PO DAILY 12/21/18 11/02/21 (Ritalin) ibuprofen 200 mg tablet 600 - 800 mg PO PRN PRN 06/19/19 11/02/21 hydrocortisone 1 % topical cream 1 applic TOPICAL BID-QID PRN 11/29/20 #28.35 g clindamycin HCl 300 mg capsule 450 mg PO Q8H #90 cap 11/02/21 Previous Rx's Medication Instructions Recorded hydrocortisone 1 % topical cream 1 applic TOPICAL BID-QID PRN 11/29/20 #28.35 g clindamycin HCl 300 mg capsule 450 mg PO Q8H #90 cap 11/02/21 Allergies Allergy/AdvReac Type Severity Reaction Status Date / Time clavulanic acid Allergy Unverified 11/02/21 21:13 [From Augmentin] Penicillins AdvReac Severe Anaphylaxsi Unverified 11/02/21 21:13 s amoxicillin AdvReac Unverified 11/02/21 21:13 General Stated Complaint: GenMedical OSCAR: 3 Review of Systems All systems reviewed & are unremarkable except as noted in HPI and below PFSH All Active Problems (Updated 11/02/21 @ 21:43 by CARLOS Flores) Dental infection (Acute) Eczema of scalp (Acute) Pain, dental (Acute) Lip swelling (Acute) Medical History (Updated 11/02/21 @ 21:43 by CARLOS Flores) ADHD Multiple myeloma Social History Smoking/Tobacco Use Status: Current every day Tobacco Type: cigarettes Smoking risk assessment performed?: Yes Alcohol Intake: never Drug use: Never Substance use type: former substance user Details: 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 Do you feel safe at home: Yes Do you feel safe in your relationship?: Yes Exam Const General: cooperative and no acute distress HENMT Mouth/tongue images: 1. Indurated, macerated Uvula midline, maintaining secretions Other: Widespread dental decay Resp Effort & Inspection: normal respiratory effort Auscultation: clear to auscultation bilaterally Cardio Rate: regular rate Rhythm: regular rhythm GI Inspection: normal to inspection Neuro General: patient alert and patient oriented x3 Course Vital Signs Vital signs: Vital Signs Temperature 36.7 C 11/02/21 21:08 Pulse 110 H 11/02/21 21:08 Respiratory Rate 18 11/02/21 21:08 Blood Pressure 155/95 H 11/02/21 21:08 Pulse Oximetry 100 11/02/21 21:08 Temperature 36.7 C 11/02/21 21:53 Temperature Source Skin 11/02/21 21:08 Pulse 110 H 11/02/21 21:53 Respiratory Rate 16 11/02/21 21:53 Respiratory Effort Non-Labored 11/02/21 21:39 Respiratory Depth Normal 11/02/21 21:39 Respiratory Pattern Normal 11/02/21 21:39 Blood Pressure 155/95 H 11/02/21 21:53 Blood Pressure Position Sitting 11/02/21 21:08 Pulse Oximetry 100 11/02/21 21:53 Oxygen Delivery Method Room Air 11/02/21 21:08 Oxygen Flow Rate 0 11/02/21 21:08 Pain Level 6 11/02/21 21:08
--- NOTE | 2021-11-03 09:19 | CMACTNOTE_ITS ---
- If Service Date Differs Date of service: 11/03/21 Time of Service: 09:20 Care Management Activity Note America is seen in the ED for lip swelling, a sore throat, and dental pain. At the request of ED provider, JENY coordinates a referral to RAVI Casanova, of [facility], on-call provider, to assist America in obtaining a follow up appointment and in establishing care with a PCP.
== END 2021-11-02 21:53 | disposition home or self-care (01) ==
PROVIDERS: Emergency Provider Physician Assistant
DX: K08.89 Other specified disorders of teeth and supporting structures (principal); R22.0 Localized swelling, mass and lump, head
CPT/HCPCS: 99283

== ENCOUNTER 2023-08-29 07:51 | Emergency (ER) | payer MEDICAID, SELFPAY ==
[2023-08-29] VITALS (9 sets, daily range): BP systolic 128–183; BP diastolic 69–107; PULSE 95–121; RESP 20; TEMP 37.1; O2SAT 96–100
--- NOTE | 2023-08-29 08:15 | DI.CT_ITS ---
Exam(s) CT CHEST/ABD/PEL W EXAM: CT CHEST/ABD/PEL W CLINICAL HISTORY: abd pain, rectal bleed, hx mult myeloma clav tumor. TECHNIQUE: Imaging Protocol: Axial computed tomography images with coronal and sagittal reformatted images were created and reviewed CONTRAST MATERIAL: Intravenous: Omnipaque 350 Contrast volume:100 ml Oral: no COMPARISON: No exams were available for comparison FINDINGS: CHEST: Tracheobronchial tree: Patent where visualized. Pulmonary parenchyma: No consolidation or dominant measurable mass. Pleura: No effusion or pneumothorax. Lymph nodes: Within normal limits. Aorta: Thoracic portion non-dilated. Heart: No pericardial effusion. Bones: Unremarkable for age. No lytic or blastic lesions.No compression fractures. No abnormality o f the clavicle visible. Soft tissues: Unremarkable. ABDOMEN and PELVIS: Liver: Normal density. No measurable mass. Gallbladder and biliary tract: Status post cholecystectomy. Mild biliary dilatation. Pancreas: Normal density, no abnormal calcifications or inflammatory process. Spleen: Normal. Kidneys: Normal size, contour and axis. No radiodense stones. No obstructive uropathy. No suspicious masses seen. Adrenal glands: No masses seen. Aorta: Abdominal portion non-dilated. Lymph nodes: Within normal limits. Soft tissues: Unremarkable. Bladder: Unremarkable. Bowel: Moderate of stool. No obstruction or bowel wall thickening. Peritoneal cavity: No ascites. No focal collection. No mesenteric inflammatory response. Bones: Unremarkable for age. Reproductive organs: Within normal limits. IMPRESSION: No acute abnormality in the chest, abdomen or pelvis.. RADIATION DOSE DELIVERED: Total DLP DATA REPOSITORY: All CT scans at this facility are submitted to the National Radiology Data Registry (NRDR) Dose Index Registry (DIR) with the [employer] (ACR). RADIATION OPTIMIZATION: All CT scans at this facility use at least one of these dose optimization te chniques: automated exposure control; mA and/or kV adjustment per patient size (includes targeted exa ms where dose is matched to clinical indication); or iterative reconstruction.
--- NOTE | 2023-08-29 08:20 | ED.GENADUL_ITS ---
HPI General Date/Time Provider Initiated Documentation: 08/29/23 07:58 . HPI Narrative: 37-year-old female history of left chest wall tumor status postresection, multiple myeloma, currently untreated, presents with abdominal pain and intermittent blood in stool over the last several months also endorsing tooth discomfort and ear pressure Related Data Home Medications Medication Instructions Recorded Confirmed methadone 10 mg/mL injection 124 mg subcut DAILY 07/31/18 08/29/23 solution dextroamphetamine-amphetamine 20 20 mg PO TID 12/21/18 08/29/23 mg tablet (Adderall) ibuprofen 200 mg tablet 600 - 800 mg PO PRN PRN 06/19/19 08/29/23 Allergies Allergy/AdvReac Type Severity Reaction Status Date / Time clavulanic acid Allergy Other (See Unverified 08/29/23 08:05 [From Augmentin] Comment) Penicillins AdvReac Severe Anaphylaxsi Unverified 08/29/23 08:05 s amoxicillin AdvReac Other (See Unverified 08/29/23 08:05 Comment) General Stated Complaint: Abd Prob OSCAR: 3 Review of Systems Narrative: Review of Systems Constitutional: negative Eyes: negative ENT: Tooth pain ear pain Cardiovascular: negative Respiratory: negative Gastrointestinal: Abdominal pain : negative Musculoskeletal: negative Skin: negative Neurologic: negative Psych: negative Exam Narrative Exam Narrative: Physical Examination General: alert, awake, cooperative, tearful HEENT: normocephalic, atraumatic; PERRL, EOM intact, conjunctiva normal; no nasal discharge; moist mucous membranes, oral and pharyngeal mucosa normal, tolerating secretions; chronic fractured carious right upper molar; TMs clear bilaterally Neck: supple, trachea midline; full ROM Chest: normal to inspection Respiratory: normal respiratory effort, speaking in full sentences, clear to auscultation, no wheezing, rales or rhonchi Cardiac: Tachycardia, regular rhythm, S1S2 intact, no murmurs rubs or gallops GI: abdomen soft, non-tender, non-distended; no palpable mass or hepatosplenomegaly Skin: no lesions, rashes or trauma appreciated Neuro: AAOx3, normal speech, moving all extremities Extremities: Edema to bilateral ankles Psych: Tearful Course Vital Signs Vital signs: Vital Signs Temperature 37.1 C 08/29/23 08:01 Pulse 121 H 08/29/23 08:01 Respiratory Rate 20 08/29/23 08:01 Blood Pressure 183/107 H 08/29/23 08:01 Pulse Oximetry 100 08/29/23 08:01 Temperature 37.1 C 08/29/23 08:07 Pulse 121 H 08/29/23 08:07 Respiratory Rate 20 08/29/23 08:07 Respiratory Effort Normal, Non-Labored 08/29/23 08:07 Blood Pressure 183/107 H 08/29/23 08:07 Pulse Oximetry 100 08/29/23 08:07 Oxygen Delivery Method Room Air 08/29/23 08:07 Medical Decision Making 37-year-old female history of multiple myeloma, chest wall tumor status postresection, presents with abdominal pain and intermittent blood in stool over the last several weeks, no to be hypertensive tachycardic on arrival however patient is very anxious and tearful regarding her current condition, she is worried that she may be dying, endorses right upper molar pain as well as ear discomfort, evidence of chronically carious and fractured right upper molar without signs of deep space infection of head or neck, TMs clear bilaterally, moist mucous membranes, abdomen soft nontender nondistended, edema to bilateral ankles, afebrile nontoxic nonhypoxic. No history of thromboembolic disease no history of coronary artery disease. Patient describes an undifferentiated mass in her pelvis for some time unclear etiology and it sounds as if she is not undergoing any current treatment. Consider cervical versus uterine mass muscles consider rectal/colonic mass versus recurrence of multiple myeloma versus foodborne illness versus viral illness versus diverticular bleed versus colonic polyp versus hemorrhoid/fissure. No evidence of otitis media, no evidence of periapical abscess or facial cellulitis on examination. Will obtain screening labs, CT chest abdomen pelvis for malignancy screening analgesia anxiolysis light fluid close reassessment of symptoms. 9: 41 patient resting comfortably no acute distress feeling much better. Labs and imaging largely unremarkable. Will establish primary care and IC DESIGN ENGINEER care for the future. Home care instructions and return precautions given Quality:SDOH Health Related Social Needs: No Data to Display PFSH All Active Problems (Updated 08/29/23 @ 09:42 by Dale Mars MD) Abdominal pain (Acute) Eczema of scalp (Acute) Dental infection (Acute) Medical History (Updated 08/29/23 @ 09:42 by Dale Mars MD) ADHD Multiple myeloma Social History Smoking/Tobacco Use Status: Current every day Tobacco Type: cigarettes Smoking risk assessment performed?: Yes Alcohol Intake: never Drug use: Never Substance use type: former substance user Details: 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 Do you feel safe at home: Yes Do you feel safe in your relationship?: Yes Discharge Plan Disposition Patient Disposition: Home Condition: Improving Discharge Details Chief Complaint: Abd Prob Clinical Impression: Abdominal pain Primary Care Provider: None,None ED Provider: Dale Mars Home Meds and New Rx's Prescriptions: No Action methadone 10 mg/mL Solution 124 mg subcut DAILY Rx Instructions: Taken PO dextroamphetamine-amphetamine [Adderall] 20 mg Tablet 20 mg PO TID ibuprofen 200 mg Tablet 600 - 800 mg PO PRN PRN Discharge Instructions Instructions: Abdominal Pain (ED) Additional Instructions: Please follow-up with primary care physician and [facility] DES[facility]INEER.
[2023-08-29] MEDS: LORazepam 2 MG/ML VIAL 1 MG IVP (08:29)
[2023-08-29] MEDS: Ondansetron 4 MG/2 ML VIAL IVP (08:29)
[2023-08-29] MEDS: ACETAMINOPHEN 1,000 MG/100 ML BTL 400 MG IVPB (08:30)
[2023-08-29] MEDS: Normal Saline 500 ML 1000 ML IV (08:31)
[2023-08-29 08:39] LABS: Abs Immature Grans 0.01 10^3/uL (0.0-0.06); Absolute Basophil Count 0.07 10^3/uL (0.0-0.2); Absolute Eosinophil Count 0.16 10^3/uL (0.0-0.7); Absolute Lymphocyte Count 2.34 10^3/uL (1.2-3.4); Absolute Monocyte Count 0.44 10^3/uL (0.1-0.8); Absolute Neutrophil Count 2.98 10^3/uL (1.2-6.7); Basophils % 1.2; Eosinophils % 2.7; HCT 43.5 % (36.0-46.0); Immature Grans % 0.2; MCH 30.5 pg (27.0-33.0); MCHC 34.5 % (32.0-36.0); MCV 88 fL (80-95); MPV 9.7 fL (8.0-11.0); Monocytes % 7.3; Neutrophils % 49.6; Platelet Count 292 10^3/uL (130-400); RBC 4.92 10^6/uL (3.93-5.22); RDW 12.4 % (11.7-14.6); RDW-SD 40.5 fL
[2023-08-29] MEDS: Normal Saline - Diluent 50 ML VIAL IJ (08:44)
[2023-08-29] MEDS: Omnipaque 350 MG/ML 100 ML BTL IJ (08:45)
[2023-08-29 08:53] LABS: PTT Activated 23.9 sec (23.6-32.8); Prothrombin Time 9.6 sec (9.1-11.1)
[2023-08-29 09:03] LABS: ALT 107 U/L (14-59); AST 56 U/L (15-37); Albumin 4.4 g/dL (3.4-5.0); Alkaline Phosphatase 163 U/L (46-116); Anion Gap 11.2 mmol/L (3-11); BUN 19 mg/dL (7-18); Bilirubin, Total 0.4 mg/dL (0.2-1.0); CO2 26.8 mmol/L (21.0-32.0); CREATININE 0.9 mg/dL (0.55-1.02); Calcium 9.6 mg/dL (8.5-10.1); Chloride 100 mmol/L (98-107); Estimated GFR 83.92 (mL/min/1.73m2); Glucose 109 mg/dL (74-106); Magnesium 2.2 mg/dL (1.8-2.4); Potassium 3.7 mmol/L (3.5-5.1); Sodium 138 mmol/L (136-145); TSH (W/Ref FT4) 3.24 uIU/mL (0.36-3.74); Total Protein 8.8 g/dL (6.4-8.2)
--- NOTE | 2023-08-29 09:26 | DI.VRAD_ITS ---
PROCEDURE INFORMATION: Exam: CT Chest With Contrast; Diagnostic Exam date and time: 08/29/2023 8:48 AM Age: 37 years old Clinical indication: Other: Abd pain, rectal bleed, HX mult myeloma clav tumor TECHNIQUE: Imaging protocol: Diagnostic computed tomography of the chest with contrast. 3D rendering (Not supervised by radiologist): MIP and/or 3D reconstructed images were created by the technologist. Radiation optimization: All CT scans at this facility use at least one of these dose optimization techniques: automated exposure control; mA and/or kV adjustment per patient size (includes targeted exams where dose is matched to clinical indication); or iterative reconstruction. Contrast material: OMNI 350; Contrast volume: 100 ml; Contrast route: INTRAVENOUS (IV); COMPARISON: No relevant prior studies available. FINDINGS: Lungs: Unremarkable. No consolidation. No masses. Pleural spaces: Unremarkable. No pneumothorax. No pleural effusion. Heart: Unremarkable. No cardiomegaly. No pericardial effusion. Lymph nodes: Unremarkable. No enlarged lymph nodes. Vasculature: Unremarkable. No aortic aneurysm. Bones/joints: Unremarkable. No acute fracture. Soft tissues: Unremarkable. IMPRESSION: No acute findings. PROCEDURE INFORMATION: Exam: CT Abdomen And Pelvis With Contrast Exam date and time: 08/29/2023 8:48 AM Age: 37 years old Clinical indication: Other: Abd pain, rectal bleed, HX mult myeloma clav tumor TECHNIQUE: Imaging protocol: Computed tomography of the abdomen and pelvis with contrast. 3D rendering (Not supervised by radiologist): MIP and/or 3D reconstructed images were created by the technologist. Radiation optimization: All CT scans at this facility use at least one of these dose optimization techniques: automated exposure control; mA and/or kV adjustment per patient size (includes targeted exams where dose is matched to clinical indication); or iterative reconstruction. Contrast material: OMNI 350; Contrast volume: 100 ml; Contrast route: INTRAVENOUS (IV); COMPARISON: No relevant prior studies available. FINDINGS: Liver: Normal. No mass. Gallbladder and bile ducts: Cholecystectomy. The common duct is prominent. It measures 11 millimeters. This may be due to post cholecystectomy state and elderly status. However, if biliary obstruction is suspected clinically, recommend further evaluation Pancreas: Normal. No ductal dilation. Spleen: Normal. No splenomegaly. Adrenal glands: Normal. No mass. Kidneys and ureters: Normal. No hydronephrosis. Stomach and bowel: Findings consistent with constipation. No obstruction. No mucosal thickening Appendix: Normal appendix Intraperitoneal space: Unremarkable. No free air. No significant fluid collection. Vasculature: Unremarkable. No abdominal aortic aneurysm. Lymph nodes: Unremarkable. No enlarged lymph nodes. Urinary bladder: Unremarkable as visualized. Reproductive: Unremarkable as visualized. Bones/joints: Unremarkable. No acute fracture. Soft tissues: Broad mouth ventral hernia without bowel IMPRESSION: No acute process Dictated and Authenticated by: Charo Clemente MD. Ordering:MAGDA Hunter MD
--- NOTE | 2023-08-29 09:42 | NUR.NOTE ---
Referral given to Care Management for help establishing a primary care provider and to be seen sometime next week. [facility] and to be seen sometime next week.
== END 2023-08-29 09:51 | disposition home or self-care (01) ==
PROVIDERS: Emergency Provider Emergency Medicine
DX: R10.9 Unspecified abdominal pain (principal); C90.00 Multiple myeloma not having achieved remission; F17.210 Nicotine dependence, cigarettes, uncomplicated
CPT/HCPCS: 74177; 80053; 96374; 96375; 99285; 71260; 83735; 84443; 85025; 85610; 85730; 99284; J0131; J2060; J2405; J3490

== ENCOUNTER 2024-01-08 22:40 | Emergency (ER) | payer MEDICAID, SELFPAY ==
[2024-01-08 22:49] VITALS: BP 205/127; PULSE 133; RESP 18; TEMP 36.4; O2SAT 100
[2024-01-08] MEDS: Acetaminophen 500 MG TAB 1000 MG PO (23:27)
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
[2024-01-08] MEDS: Ketorolac 15 MG/ML VIAL IM (23:28)
[2024-01-09 00:26] VITALS: BP 151/112; PULSE 89; RESP 18; O2SAT 98
[2024-01-09] MEDS: Sulfameth/Trimeth DS TAB 1 TAB PO (00:30)
[2024-01-09] MEDS: Sulfameth/Trimeth DS, 2 TABS/BTL 1 TAB PO (00:33)
== END 2024-01-09 00:35 | disposition home or self-care (01) ==
PROVIDERS: Emergency Provider Student in an Organized Health Care Education/Training Program
DX: L02.415 Cutaneous abscess of right lower limb (principal)
CPT/HCPCS: 10060; 99284; 99283; J1885